=== PATIENT | female | born 1975 | race Caucasian/White ===

== ENCOUNTER 2019-09-24 19:37 | Emergency (ER) | payer MEDICAID ==
[~2019-09-24] VITALS: Ht 172.7 cm; Wt 54.0 kg
--- NOTE | 2019-09-24 20:28 | PHYS DOC ---
Past Medical History Past Medical History: Asthma, COPD Past Surgical History: Appendectomy, Hysterectomy Additional Past Surgical Histo: l wrist Smoking Status: Current Every Day Smoker Alcohol Use: Occasionally General Adult EDM: Chief Complaint: ABDOMINAL PAIN HPI: HPI: Patient is a 44 year old female who presents with 3 days of abdominal pain. Patient states that she was out walking when she began to have pain. The pain was sharp and severe and lasted a few seconds and then resolved spontaneously. It seemed to go away and did not return until Wednesday morning when it woke her up from sleep. Again it went away but in the last 24 hours the pain is become constant and seems to migrate down towards the left lower quadrant. Patient denies any hematuria, pyuria or back pain. She denies, fever sweats, chills. She has had nausea and vomiting as well as diarrhea for the last 3 days as well. 3 watery stools today, large-volume. Patient reports that eating seems to make the pain worse. The pain originates in the epigastrium and again radiates towards the left lower quadrant. Review of Systems: Review of Systems: Constitutional: Denies fever or chills. [] Eyes: Denies change in visual acuity. [] HENT: Denies nasal congestion or sore throat. [] Respiratory: Denies cough or shortness of breath. [] Cardiovascular: Denies chest pain or edema. [] GI: See HPI. [] : Denies dysuria. [] Musculoskeletal: Denies back pain or joint pain. [] Integument: Denies rash. [] Neurologic: Denies headache, focal weakness or sensory changes. [] Endocrine: Denies polyuria or polydipsia. [] Lymphatic: Denies swollen glands. [] Psychiatric: Denies depression or anxiety. [] Heart Score: Risk Factors: Risk Factors: DM, Current or recent (<one month) smoker, HTN, HLP, family history of CAD, obesity. Risk Scores: Score 0 - 3: 2.5% MACE over next 6 weeks - Discharge Home Score 4 - 6: 20.3% MACE over next 6 weeks - Admit for Clinical Observation Score 7 - 10: 72.7% MACE over next 6 weeks - Early Invasive Strategies Physical Exam: PE: Constitutional: Well developed, well nourished, no acute distress, non-toxic appearance. [] HENT: Normocephalic, atraumatic, bilateral external ears normal, oropharynx moist, no oral exudates, nose normal. [] Eyes: PERRLA, EOMI, conjunctiva normal, no discharge. [] Neck: Normal range of motion, no tenderness, supple, no stridor. [] Cardiovascular:Heart rate regular rhythm, no murmur [] Lungs & Thorax: Bilateral breath sounds clear to auscultation [] Abdomen: B normal bowel sounds, soft, tenderness in the left lower quadrant without guarding or rebound, no masses, no hepatosplenomegaly, negative Mata sign [] Skin: Warm, dry, no erythema, no rash. [] Back: No tenderness, no CVA tenderness. [] Extremities: No tenderness, no cyanosis, no clubbing, ROM intact, no edema. [] Neurologic: Alert and oriented X 3, normal motor function, normal sensory function, no focal deficits noted. [] Psychologic: Affect normal, judgement normal, mood normal. [] Current Patient Data: Vital Signs: Vital Signs Date Time Temp Pulse Resp B/P (MAP) Pulse Ox O2 Delivery O2 Flow Rate FiO2 09/24/19 19:50 98.0 75 15 131/81 (98) 99 Room Air 98.0 EKG: EKG: [] Radiology/Procedures: Radiology/Procedures: [] Course & Med Decision Making: Course & Med Decision Making Pertinent Labs and Imaging studies reviewed. (See chart for details) 2228-patient was seen and reevaluated. I went through all the laboratory and CT findings with the patient. At this time no evidence for an exigent medical or surgical problems noted. I suspect she is suffering from acute gastroenteritis given the diarrhea and pain. At this time no intervention other than probiotics, clear liquids and [id number] pain medications will be prescribed for her. We will give her something for nausea. I discussed reasons to return, treatment plan and need for follow-up. [] Karlee Disclaimer: Karlee Disclaimer: This electronic medical record was generated, in whole or in part, using a voice recognition dictation system. Departure Departure Impression: Primary Impression: Left lower quadrant abdominal pain Additional Impression: Acute infectious nonbacterial gastroenteritis Disposition: 01 HOME, SELF-CARE Condition: IMPROVED Referrals: NO PCP (PCP) Patient Instructions: Abdominal Pain, Viral Gastroenteritis Scripts Metoclopramide Hcl (REGLAN) 10 Mg Tablet 1 TAB PO Q6HRS PRN for NAUSEA/VOMITING, #10 TAB 0 Refills before food and bedtime Prov: BRENDA MOYER MD 09/24/19 Justicifation of Admission Dx: Justifications for Admission: Justification of Admission Dx: N/A BRENDA MOYER MD Sep 24, 2019 20:27
[2019-09-24] MEDS ORDERED: ONDANSETRON PF 4 MG/2 ML VIAL. IVP ONE (20:30)
[2019-09-24] MEDS ORDERED: IV NORMAL SALINE 500ML BAG 500 ML IV ONE (20:30)
[2019-09-24] MEDS ORDERED: HYDROmorphone 2 MG/ML VIAL IV ONE (20:30)
[2019-09-24 21:00] LABS: BASO # 0.1 x10^3/uL (0.0-0.2); BASO % 1 % (0-3); EOS # 0.4 x10^3/uL (0.0-0.7); EOS % 6 % (0-3); HEMATOCRIT 45.1 % (36.0-47.0); HEMOGLOBIN 15.4 g/dL (12.0-15.5); LYMPH # 1.9 x10^3/uL (1.0-4.8); LYMPH % 27 % (24-48); MEAN CORPUSCULAR HEMOGLOBIN 32 pg (25-35); MEAN CORPUSCULAR HGB CONC 34 g/dL (31-37); MEAN CORPUSCULAR VOLUME 93 fL (79-100); MONO # 0.7 x10^3/uL (0.0-1.1); MONO % 9 % (0-9); NEUT % 57 % (31-73); PLATELET COUNT 232 x10^3/uL (140-400); RED BLOOD COUNT 4.84 x10^6/uL (3.50-5.40); RED CELL DISTRIBUTION WIDTH 13.5 % (11.5-14.5); WHITE BLOOD COUNT 7.1 x10^3/uL (4.0-11.0)
[2019-09-24 21:01] LABS: BILIRUBIN,URINE SMALL (NEG); CLARITY,URINE CLEAR; COLOR,URINE AMBER; NITRITE,URINE NEGATIVE (NEG); PH,URINE 5.5 (<5.0-8.0); PROTEIN,URINE NEGATIVE (NEG-TRACE)
[2019-09-24 21:08] LABS: CALCIUM 9.8 mg/dL (8.5-10.1); CREATININE 0.7 mg/dL (0.6-1.0); GFR 91.3; POTASSIUM 4.3 mmol/L (3.5-5.1)
[2019-09-24 21:09] LABS: RBC,URINE 0 /HPF (0-2); SQUAMOUS EPITHELIAL CELL,UR MOD /LPF
[2019-09-24 21:09] LABS: PROTHROMBIN TIME PATIENT 12.3 SEC (11.7-14.0)
[2019-09-24 21:10] LABS: BACTERIA,URINE MODERATE /HPF (0-FEW); WBC,URINE OCC /HPF (0-4)
[2019-09-24 21:13] LABS: ALBUMIN 3.7 g/dL (3.4-5.0); ALBUMIN/GLOBULIN RATIO 0.9 (1.0-1.7); TOTAL BILIRUBIN 0.3 mg/dL (0.2-1.0); TOTAL PROTEIN 7.6 g/dL (6.4-8.2)
[2019-09-24] MEDS ORDERED: CONTRAST GIVEN. MC PRN (22:00)
[2019-09-24] MEDS ORDERED: IOHEXOL 300 MG/ML 100ML VIAL. IV ONE (22:00)
--- NOTE | 2019-09-24 22:24 | RAD ---
CT ABD PELV W/ IV CONTRST ONLY History: Left lower quadrant abdominal pain Comparison: None. Technique: After administration of intravenous contrast, helical CT of the abdomen and pelvis was performed from the lung bases through the ischial tuberosities. Coronal and sagittal reconstructions were obtained. 75 mL of Omnipaque 300 were used. One or more of the following dose reduction techniques were utilized: Automated exposure control (AEC), Adjustment of mA and/or kV according to patient size, Use of iterative reconstruction technique such as ASiR, CT scan done according to ALARA and image gently/image wisely Abdomen Findings: The visualized lung bases are clear. The liver, gallbladder, pancreas, spleen, and bilateral adrenal glands are normal. Symmetric renal enhancement. There is no focal renal mass. There is no hydronephrosis. The visualized loops of small bowel are normal. The visualized loops of large bowel are normal. There is no evidence of bowel obstruction. There is no free fluid. There is no mesenteric or retroperitoneal adenopathy. The abdominal aorta is normal in caliber. Pelvis Findings: Urinary bladder is decompressed. Hysterectomy. No pelvic free fluid. There is no pelvic or inguinal adenopathy. There is no acute bony abnormality. IMPRESSION: No acute findings. Electronically signed by: Sanju Payne MD (09/24/2019 10:22 PM) [facility]
[2019-09-24] MEDS ORDERED: METO10TA81 PO (22:39)
[2019-09-24 22:49] VITALS: BP 117/61
--- NOTE | 2019-09-27 10:40 | NUR ---
IP: Informed pt of negative COVID test results. Pt verbalized understanding.
== END 2019-09-24 23:05 | disposition home or self-care (01) ==
LOC: ER 19:37
DX: K52.9 Noninfective gastroenteritis and colitis, unspecified (principal); R10.32 Left lower quadrant pain; R11.2 Nausea with vomiting, unspecified; J44.9 Chronic obstructive pulmonary disease, unspecified; F17.200 Nicotine dependence, unspecified, uncomplicated; Z90.89 Acquired absence of other organs; Z90.710 Acquired absence of both cervix and uterus; Z98.890 Other specified postprocedural states
CPT/HCPCS: 36415; 74177; 80053; 81001; 83605; 83690; 85025; 85610; 87086; 96361; 96374; 96375; 99285; J1170; J2405; J7040; Q9967; U0003